=== PATIENT | male | born 1990 | race American Indian/Alaskan Native ===

== ENCOUNTER 2020-02-23 19:33 | Emergency (ER) | payer SELFPAY ==
[2020-02-23 20:39] VITALS: BP 109/73
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
== END 2020-02-23 21:22 | disposition home or self-care (01) ==
LOC: ED 19:33
DX: S16.1XXA Strain of muscle, fascia and tendon at neck level, initial encounter (principal); V49.59XA Passenger injured in collision with other motor vehicles in traffic accident, initial encounter; Y93.89 Activity, other specified; Y92.488 Other paved roadways as the place of occurrence of the external cause; Y99.8 Other external cause status
CPT/HCPCS: 99282